=== PATIENT | female | born 1940 | race Caucasian/White ===

== ENCOUNTER 2018-03-09 17:37 | Emergency (ER) | payer SELFPAY, OTHER ==
[2018-03-09] MEDS: NICARDipine HCL 30 MG CAPSULE PO (18:07)
[2018-03-09] MEDS: LIDOCAINE/MYLANTA 40 ML BTL PO (18:07)
[2018-03-09] MEDS: FAMOTIDINE 20 MG TAB PO (18:07)
[2018-03-09] MEDS: ACETAMINOPHEN 325 MG TAB PO (18:08)
== END 2018-03-09 21:30 | disposition home or self-care (01) ==
LOC: E/R 17:37
DX: I10 Essential (primary) hypertension (principal); Z91.14 Patient's other noncompliance with medication regimen
CPT/HCPCS: 70450; 99284-25

== ENCOUNTER 2018-03-29 20:02 | Emergency (ER) | payer SELFPAY, OTHER ==
[2018-03-29 23:10] LABS: ADD MAN DIFF? NO
[2018-03-29 23:12] LABS: WHITE BLOOD COUNT 6.7 10^3/ul (4.8-10.8)
[2018-03-29 23:12] LABS: BASOPHILS % 0.6 % (0.0-2.0); EOSINOPHILS # 0.1 10^3/ul (0.0-0.5); EOSINOPHILS % 1.6 % (0.0-7.0); LYMPHOCYTES # 2.4 10^3/ul (0.8-2.9); LYMPHOCYTES % 35.1 % (15.0-51.0); MEAN CORPUSCULAR HEMOGLOBIN 27.8 pg (29.0-33.0); MEAN CORPUSCULAR HGB CONC 32.4 g/dl (32.0-37.0); MEAN CORPUSCULAR VOLUME 85.8 fl (82.0-101.0); MEAN PLATELET VOLUME 10.7 fl (7.4-10.4); MONOCYTE # 0.5 10^3/ul (0.3-0.9); MONOCYTES % 7.4 % (0.0-11.0); NEUTROPHIL # 3.7 10^3/ul (1.6-7.5); PLATELET COUNT 155 10^3/UL (140-415); RED BLOOD COUNT 4.31 10^6/ul (4.20-5.40); RED CELL DISTRIBUTION WIDTH 13.3 % (11.5-14.5)
[2018-03-29 23:14] LABS: URINE BLOOD (Dip) POC Negative (NEGATIVE); URINE GLUCOSE (Dip) POC Negative (NEGATIVE); URINE KETONES (Dip) POC Trace (NEGATIVE); URINE LEUKOCYTE EST (Dip) POC 1+ (NEGATIVE); URINE NITRITE (Dip) POC Negative (NEGATIVE); URINE TOTAL PROTEIN POC 2+ (NEGATIVE)
[2018-03-29 23:14] LABS: URINE PH (Dip) POC 7.5 (5.0-8.5)
[2018-03-29 23:30] LABS: ALANINE AMINOTRANSFERASE 42 IU/L (13-69); ALBUMIN 4.3 g/dl (3.3-4.9); ALBUMIN/GLOBULIN RATIO 1.04; ALKALINE PHOSPHATASE 159 IU/L (42-121); ANION GAP 12 (5-13); ASPARTATE AMINO TRANSFERASE 80 IU/L (15-46); BILIRUBIN,INDIRECT 0.1 mg/dl (0-1.1); BILIRUBIN,TOTAL 0.1 mg/dl (0.2-1.3); BLOOD UREA NITROGEN 18 mg/dl (7-20); CALCIUM 9.2 mg/dl (8.4-10.2); CARBON DIOXIDE 24 mmol/L (21-31); CHLORIDE 106 mmol/L (97-110); CREATININE 0.75 mg/dl (0.44-1.00); GLUCOSE 103 mg/dl (70-220); LIPASE 168 U/L (23-300); POTASSIUM 4.4 mmol/L (3.5-5.1); SODIUM 142 mmol/L (135-144); TOTAL PROTEIN 8.4 g/dl (6.1-8.1)
[2018-03-30] MEDS: TRIMETHOPRIM/SULFAMETHOX (DS) TAB PO (02:23)
== END 2018-03-30 02:30 | disposition home or self-care (01) ==
LOC: E/R 03-30 02:30
DX: K56.7 Ileus, unspecified (principal); N39.0 Urinary tract infection, site not specified; K80.20 Calculus of gallbladder without cholecystitis without obstruction; R94.5 Abnormal results of liver function studies; I10 Essential (primary) hypertension
CPT/HCPCS: 36415; 74176; 80053; 81003; 83690; 85025; 93005; 99285-25

== ENCOUNTER 2018-03-30 10:58 | Emergency (ER) | payer SELFPAY ==
[2018-03-30] MEDS ORDERED: SOD CHLORIDE 0.9% 500 ML IV (12:26)
== END 2018-03-30 12:54 | disposition home or self-care (01) ==
LOC: E/R 10:58
DX: K56.7 Ileus, unspecified (principal); I10 Essential (primary) hypertension
CPT/HCPCS: 99283